=== PATIENT | female | born 1965 | race Caucasian/White ===

== ENCOUNTER 2019-03-11 08:51 | Emergency (ER) | payer SELFPAY ==
--- NOTE | 2019-03-11 09:17 | ED ---
Upper Extremity Pain - HPI Summary HPI Summary: This patient is a 53 year old F presenting to [facility] with a chief complaint of pain in left thumb since fall on 03/10/19. The pain is radiating down her arm. Pt was walking out of the staff lounge, the floor was wet, and she slipped. She landed on her thumb and left knee, and twisted her right ankle and back. Per triage, the patient rates the pain 5/10 in severity. - History of Current Complaint Chief Complaint: EDExtremityUpper Stated Complaint: POSS BROKEN FINGER PER PT Time Seen by Provider: 03/11/19 08:57 Hx Obtained From: Patient Mechanism Of Injury: Fall From A Standing Position Onset/Duration: Started Hours Ago, Still Present Timing: Constant Severity Initially: Moderate Severity Currently: Moderate Pain Location: Finger Aggravating Factor(s): Movement Alleviating Factor(s): Nothing Associated Signs & Symptoms: Positive: Back Pain - Allergies/Home Medications Allergies/Adverse Reactions: Allergies Allergy/AdvReac Type Severity Reaction Status Date / Time cephalexin [From Keflex] Allergy Unknown Verified 03/11/19 08:55 Reaction Details Penicillins Allergy Unknown Verified 03/11/19 08:55 Reaction Details Home Medications: Home Medications Estradiol [Yuvafem] 1 tab VAGINAL SEE INSTRUCTIONS 03/11/19 [History Confirmed 03/11/19] Prasterone (Dhea)/Calcium Carb [Dhea Tablet] 1 agus PO DAILY 03/11/19 [History Confirmed 03/11/19] PMH/Surg Hx/FS Hx/Imm Hx Endocrine/Hematology History: Denies: Hx Diabetes, Hx Anemia Cardiovascular History: Reports: Hx Hypertension - MEDICATED Denies: Hx Pacemaker/ICD Respiratory History: Denies: Hx Asthma GI History: Denies: Hx Jaundice Sensory History: Denies: Hx Hearing Aid Psychiatric History: Denies: Hx Panic Disorder - Cancer History Cancer Type, Location and Year: SKIN CA - Surgical History Surgery Procedure, Year, and Place: T&A,CYST REMOVED FROM HEAD. SKIN CA ARM Infectious Disease History: No Infectious Disease History: Denies: Traveled Outside the [place] in Last 30 Days - Family History Known Family History: Positive: Hypertension - Social History Occupation: Employed Full-time Alcohol Use: Weekly Alcohol Amount: 1 cocktail per night Substance Use Type: Reports: None Smoking Status (MU): Former Smoker Type: Cigarettes Review of Systems Negative: Fever Positive: Other - Left thumb pain, back pain, left knee pain All Other Systems Reviewed And Are Negative: Yes Physical Exam - Summary Physical Exam Summary: VITAL SIGNS: Reviewed. GENERAL: Patient is a well-developed and nourished female who is lying comfortable in the stretcher. Patient is not in any acute respiratory distress. HEAD AND FACE: No signs of trauma. No ecchymosis, hematomas or skull depressions. No sinus tenderness. EYES: PERRLA, EOMI x 2, No injected conjunctiva, no nystagmus. EARS: Hearing grossly intact. Ear canals and tympanic membranes are within normal limits. MOUTH: Oropharynx within normal limits. NECK: Supple, trachea is midline, no adenopathy, no JVD, no carotid bruit, no c- spine tenderness, neck with full ROM. CHEST: Symmetric, no tenderness at palpation. LUNGS: Clear to auscultation bilaterally. No wheezing or crackles. CVS: Regular rate and rhythm, S1 and S2 present, no murmurs or gallops appreciated. ABDOMEN: Soft, non-tender. No signs of distention. No rebound, no guarding, and no masses palpated. Bowel sounds are normal. EXTREMITIES: Left thumb small hematoma, tender to palpation, limited ROM secondary to pain. No edema. NEURO: Alert and oriented x 3. No acute neurological deficits. Speech is normal and follows commands. SKIN: Dry and warm Triage Information Reviewed: Yes Vital Signs On Initial Exam: Initial Vitals Temp Pulse Resp BP Pulse Ox 97.8 F 83 16 167/102 98 03/11/19 08:52 03/11/19 08:52 03/11/19 08:52 03/11/19 08:52 03/11/19 08:52 Vital Signs Reviewed: Yes Procedures - Sedation Patient Received Moderate/Deep Sedation with Procedure: No Diagnostics - Vital Signs Vital Signs Temp Pulse Resp BP Pulse Ox 03/11/19 08:52 97.8 F 83 16 167/102 98 - Laboratory Lab Statement: Any lab studies that have been ordered have been reviewed, and results considered in the medical decision making process. - Radiology Hand X-Ray Radiology Interpretation Completed By: Radiologist Summary of Radiographic Findings: Hand X-Ray reveals, per radiologist, IMPRESSION: Normal left hand radiograph. ED physician has reviewed this radiology report. Re-Evaluation - Re-Evaluation First Eval Re-Evaluation Time: 09:51 Comment: Updated pt on results. Second Eval Re-Evaluation Time: 10:40 Comment: Discussed results and plan of care with pt Course/Dx - Course Assessment/Plan: Patient is a 53-year-old female who presents to the emergency department with a chief complaint of left thumb pain. X-ray of the left hand impression: No fracture or dislocation. Therefore the patient will be discharged home with follow-up with the primary care physician. The patient was recommended to take Ibuprofen or Tylenol for pain. All her concerns and questions were answered to her satisfaction. The patient was recommended to take ibuprofen or Tylenol for pain. all her concerns and questions were answered at patient satisfaction. - Diagnoses Provider Diagnoses: Pain of left thumb Discharge ED - Sign-Out/Discharge Documenting (check all that apply): Patient Departure - Discharge Plan Condition: Stable Disposition: HOME Patient Education Materials: Finger Sprain (ED) Referrals: Cece Moss MD [Primary Care Provider] - 3 Days Additional Instructions: FOLLOW UP WITH YOUR PRIMARY CARE PROVIDER WITHIN ONE WEEK. RETURN TO THE ED FOR ANY WORSENING OR NEW SYMPTOMS. - Billing Disposition and Condition Condition: STABLE Disposition: Home - Attestation Statements Document Initiated by Don: Yes Documenting Scribe: Jerica Wallace Provider For Whom Don is Documenting (Include Credential): Eusebio Perales MD Scribe Attestation: Jerica Ascencio scribed for Eusebio Perales MD on 03/11/19 at 1842. Scribe Documentation Reviewed: Yes Provider Attestation: The documentation as recorded by the Jerica mireles accurately reflects the service I personally performed and the decisions made by , Eusebio Perales MD Status of Scribe Document: Viewed
--- OUTSIDE RECORDS SUMMARY | 2019-03-11 09:25 | XMS REPORT | Continuity of Care Document ---
:1965 External Reference #:[id number] Author Name KENYON Murguia (transmitted by agent of provider Shaniqua Nina) Address [facility], [place] [address] Care Team Providers Name Role Phone Cece Castrejon MD - Family Care Team Information [place] Detective Medicine Problems Description No Information Available Social History Type Date Description Comments Sex Unknown Tobacco Use Start: Unknown Never Smoked Cigarettes Smoking Status Reviewed: 02/21/19 Never Smoked Cigarettes ETOH Use Occasionally consumes alcohol Tobacco Use Start: Unknown End: Patient is a former quit last time 03/2013 Unknown smoker - was smoking 1-5 cigarettes per day for 20 years Exercise Exercises regularly Type/Frequency Allergies, Adverse Reactions, Alerts Active Allergies Reaction Severity Comments Date Penicillins rash had reaction as an 11/30/2013 Medications Active Medications SIG Qnty Indications Ordering Date Provider Lou one suppository in Nupur 11/29/2018 10mcg Tablets vagina 2x week KENYON Odom Biest 1/2 gram bid 30Grams N95.9 Nupur 11/29/2018 1MG/Progesterone KENYON Odom 30MG /Gram Progesterone Cream one pump hs 3 weeks Unknown on and 1 week off Dhea one lozenge Unknown sublingual tablet daily Adrenal Support bid Unknown Liquid Supplement Estrodiol Cream applied vaginally Unknown twice weekly Collagen Supplement three to six Unknown capsules daily History Medications Vitamin B 12 1 sl every day KENYON Murguia 11/29/2018 - 2018 100mcg Lozenges Immunizations Description No Information Available Vital Signs Date Vital Result Comment 02/21/2019 4:03pm Height 64.25 inches 5'4.25" Heart Rate 73 /min BP Systolic 150 mmHg BP Diastolic 89 mmHg Body Temperature 97.0 F O2 % BldC Oximetry 98 % 11/29/2018 1:04pm Height 64.25 inches 5'4.25" Heart Rate 85 /min BP Systolic 120 mmHg BP Diastolic 79 mmHg Body Temperature 99.0 F O2 % BldC Oximetry 98 % Last Menstrual Period [id number] Results Description No Information Available Procedures Description No Information Available Medical Devices Description No Information Available Encounters Type Date Location Provider Dx Diagnosis Office Visit 11/29/2018 [facility] Nupur N95.9 Unspecified menopausal 1:00p [facility] KENYON Odom and perimenopausal disorder F43.20 Adjustment disorder, unspecified R53.83 Other fatigue Assessments Date Code Description Provider 02/21/2019 R03.0 Elevated blood-pressure reading, without KENYON Murguia diagnosis of hypertension 02/21/2019 N95.9 Unspecified menopausal and perimenopausal KENYON Murguia disorder 02/21/2019 F43.20 Adjustment disorder, unspecified KENYON Murguia 02/21/2019 R53.83 Other fatigue KENYON Murguia 11/29/2018 N95.9 Unspecified menopausal and perimenopausal KENYON Murguia disorder 11/29/2018 F43.20 Adjustment disorder, unspecified Nupur Odom [place] 11/29/2018 R53.83 Other fatigue KENYON Murguia Plan of Treatment Future Appointment(s):05/04/2019 4:00 pm - KENYON Murguia at [facility]02/21/2019 - Nupur Odom PAR03.0 Elevated blood- pressure reading, without diagnosis of hypertensionRecommendations:pt will check blood pressure several times a week to follow and send in results. send them in to portal goal is <125/85N95.9 Unspecified menopausal and perimenopausal disorderRecommendations:you can stop the vaginal cream and just use the Yuvafem organic lexy psyllium gradual increase to one tablespoon take the probiotic every dayF43.20 Adjustment disorder, [id number] Other fatigueRecommendations:Wellevate Licorice Plus / Metagenics Functional Status Description No Information Available Mental Status Description No Information Available Referrals Description No Information Available
[2019-03-11 11:49] VITALS: BP 165/101
== END 2019-03-11 11:05 | disposition home or self-care (01) ==
LOC: ED 08:51
DX: M79.645 Pain in left finger(s) (principal); S60.012A Contusion of left thumb without damage to nail, initial encounter; W01.0XXA Fall on same level from slipping, tripping and stumbling without subsequent striking against object, initial encounter; Y92.59 Other trade areas as the place of occurrence of the external cause; Y99.0 Civilian activity done for income or pay; M25.562 Pain in left knee; M54.9 Dorsalgia, unspecified; I10 Essential (primary) hypertension; Z88.1 Allergy status to other antibiotic agents; Z88.0 Allergy status to penicillin; Z87.891 Personal history of nicotine dependence
CPT/HCPCS: 99282